=== PATIENT | male | born 1950 | race Caucasian/White ===

== ENCOUNTER 2016-09-03 12:39 | Emergency (ER) | payer BC ==
[2016-09-03 13:12] VITALS: BP 151/83; PULSE 52; TEMP 97.8; BMI 25.0
--- NOTE | 2016-09-03 14:38 | PDOC ---
History of Present Illness - General Chief Complaint: Back Pain Stated Complaint: BACK PAIN Time Seen by Provider: 09/03/16 14:31 History Source: Patient Exam Limitations: No Limitations - History of Present Illness Initial Comments: 09/03/16 14:53 MY CHIEF COMPLAINT: LEFT SIDED LOWER BACK PAIN RADIATES DOWN LEFT BUTTOCK LEFT LEG TO LEFT FOOT HISTORY OF PRESENT ILLNESS: Patient is a 66-year-old male with a history of hypertension and gastric reflux and history of lower back pain with sciatica 15 years ago. Patient reports that approximately one week ago he flew to [place] when he got off the plane he felt pain in his left lower back that started to radiate down his buttocks to left posterior legs to left foot. Pain has gotten worse in the last 2 days. Patient also reports tingling in his left leg. Patient reports the pain is severe currently a 10 /10 sharp worse with sitting. He is ambulating slowly due to pain. Patient has not taken anything for pain. 09/03/16 14:57 09/03/16 15:11 Past History - Past Medical History Allergies/Adverse Reactions: Allergies Allergy/AdvReac Type Severity Reaction Status Date / Time No Known Allergies Allergy Verified 09/03/16 13:09 Home Medications: Ambulatory Orders Atorvastatin Ca [Lipitor] 80 mg PO HS 09/03/16 Naproxen [Naprosyn -] 500 mg PO BID PRN #14 tablet 09/03/16 Omeprazole 10 mg PO ASDIR 09/03/16 Valsartan/Hydrochlorothiazide [Valsartan-Hctz 80-12.5 mg Tab] 80 mg PO ASDIR 10/17 HTN: Yes - Psycho/Social/Smoking Cessation Hx Suicidal Ideation: No Smoking History: Never smoked Review of Systems - Review of Systems Able to Perform ROS?: Yes Constitutional: No: Symptoms Reported HEENTM: No: Symptoms Reported Respiratory: No: Symptoms reported Cardiac (ROS): No: Symptoms Reported ABD/GI: No: Symptoms Reported : No: Symptoms Reported Musculoskeletal: Yes: Back Pain (left lower back pain radiates to left buttock down left leg to foot for one week worse last 2 days) Integumentary: No: Symptoms Reported Neurological: Yes: Tingling (intermittent left leg) *Physical Exam - Vital Signs Last Vital Signs Temp Pulse Resp BP Pulse Ox 97.8 F 52 L 19 151/83 99 03/04/17 13:09 09/03/16 13:09 09/03/16 13:09 09/03/16 13:09 09/03/16 13:09 - Physical Exam General Appearance: Yes: Appropriately Dressed Respiratory/Chest: positive: Lungs Clear, Normal Breath Sounds. negative: Chest Tender, Respiratory Distress Cardiovascular: positive: Regular Rhythm, Regular Rate, S1, S2 Musculoskeletal: positive: Decreased Range of Motion (from waist ), Other (left lumbar/sacral ). negative: Vertebral Tenderness Extremity: positive: Normal Capillary Refill, Normal Inspection, Normal Range of Motion Integumentary: positive: Normal Color Neurologic: positive: Normal Response, Motor Strength 5/5 (decreased motor/ strength left leg), Respond to painful stimul (left leg ), Responsive, Other ( unable to do SLR due to pain ). negative: Numbness, Sensory Deficit (left leg ) Deep Tendon Reflexes: Knee (L): 3+, Knee (R): 3+ Medical Decision Making - Medical Decision Making 09/03/16 15:12 Patient is a 66-year-old male with a history of hypertension and gastric reflux and history of lower back pain with sciatica 15 years ago. Patient reports that approximately one week ago he flew to [place] when he got off the plane he felt pain in his left lower back that started to radiate down his buttocks to left posterior legs to left foot. Pain has gotten worse in the last 2 days. Patient also reports tingling in his left leg. Patient reports the pain is severe currently a 10 /10 sharp worse with sitting. He is ambulating slowly due to pain. Patient has not taken anything for pain. Left lower back pain with radiculopathy left leg Plan: Toradol 30 mg IM now X-ray lumbar sacral spine narrowing disc space between L5 - S1 per Dr. South 09/03/16 16:46 feeling much better will discharge to home on naprosyn 500 mg bid prn for 7 days follow up ortho *DC/Admit/Observation/Transfer Diagnosis at time of Disposition: Lumbar radiculopathy, acute - Discharge Dispostion Disposition: HOME Condition at time of disposition: Stable - Referrals Referrals: Basilio Smith MD [Primary Care Provider] - Paolo Schmidt MD [Staff Physician] - - Patient Instructions Additional Instructions: Up with orthopedist within the next few days Return to emergency room if pain worsens any numbness of legs or groin Avoid any strenuous activities or exercise use proper lifting techniques and turning technique's demonstrated the emergency room Patient voiced understanding of discharge instructions and all questions were answered
[2016-09-03] MEDS ORDERED: KETOROLAC TROMETHAMINE 60 MG/2 ML VIAL IM ONE (15:08)
[2016-09-03] MEDS ORDERED: KETOROLAC TROMETHAMINE 30 MG/1 ML VIAL IM ONE (15:10)
[2016-09-03] MEDS ORDERED: KETOROLAC TROMETHAMINE 30 MG/1 ML VIAL ONE (15:13)
== END 2016-09-03 16:55 | disposition home or self-care (01) ==
LOC: JERFT 12:39
PROC: 3E0233Z Introduction of Anti-inflammatory into Muscle, Percutaneous Approach (ICD-10-PCS; principal; 2016-09-03)
DX: M54.16 Radiculopathy, lumbar region (principal); I10 Essential (primary) hypertension; K21.9 Gastro-esophageal reflux disease without esophagitis
CPT/HCPCS: 72100-TC; 99281-25